=== PATIENT | female | born 1935 | race Two or more races ===

== ENCOUNTER 2017-04-14 09:31 | Outpatient (CLI) | payer OTHER, BC | END 2017-04-14 09:36 | disposition home or self-care (01) | LOC: LAB 09:31 | DX: N30.00 Acute cystitis without hematuria (principal) ==

== ENCOUNTER 2017-06-02 06:43 | Outpatient (CLI) | payer OTHER, BC | END 2017-06-02 06:51 | disposition home or self-care (01) | LOC: LAB 06:43 | DX: R10.30 Lower abdominal pain, unspecified (principal); K57.30 Diverticulosis of large intestine without perforation or abscess without bleeding ==

== ENCOUNTER 2017-08-22 06:31 | Outpatient (CLI) | payer OTHER, BC | END 2017-08-22 10:18 | disposition home or self-care (01) | LOC: NUCLEAR 06:31 | DX: R07.89 Other chest pain (principal); R94.31 Abnormal electrocardiogram [ECG] [EKG] | CPT/HCPCS: 78452; 93017; A9500; J0153 ==

== ENCOUNTER → 2018-01-29 11:35 | Outpatient (CLI) | payer OTHER, BC | END | disposition home or self-care (01) | LOC: LAB 11:35 | DX: E03.5 Myxedema coma (principal) ==

== ENCOUNTER 2018-07-02 08:22 | Outpatient (CLI) | payer OTHER, BC | END 2018-07-02 08:34 | disposition home or self-care (01) | LOC: NUCLEAR 08:22 | DX: M81.0 Age-related osteoporosis without current pathological fracture (principal) ==